=== PATIENT | female | born 1990 ===

== ENCOUNTER 2018-06-21 03:50 | Observation (INO) | payer OTHER ==
--- OUTSIDE RECORDS SUMMARY | 2018-06-21 04:20 | XMS REPORT | Continuity of Care Document ---
:1990 Author Organization Interface Problems Problem Status Onset Classification Date Comments Source Date Reported Discharge 06/29/2016 [place] Diagnosis: 7 [facility] 7 [place] Medications Medication Details Route Status Patient Ordering Order Source Instructions Provider Date Sodium 1,000 mL, Inactive Chloride 1000 017 [place] 0.154 MEQ/ML ml/hr, Injectable Infuse Solution Over: 1 hr, Route: IV, 1,000, Drug form: INJ, ONCE, Priority: STAT, Dosing Weight 65 kg, Start date: 06/26/16 10:36:00 SENIOR SALES ADMINISTRATOR, Duration: 1 doses or times, Stop date: 06/26/16 10:36:00 SENIOR SALES ADMINISTRATOR Allergies, Adverse Reactions, Alerts Substance Category Reaction Severity Reaction Status Date Comments Source type Reported Immunizations Immunization Date Given Site Status Last Updated Comments Source Results Order Name Results Value Reference Date Interpretation Comments Source Range CHEM PANEL eGFR 99 06/26 Result Comment: The eGFR is calculated using the CKD-EPI formula. In most young, healthy individuals the eGFR will be >90 mL/ min/1.73m2. The eGFR declines with age. An eGFR of 60-89 may be normal in mL/min/1 some populations, particularly the elderly, for whom the CKD-EPI formula has not been extensively validated. Use of the eGFR is not recommended in the following populations: [place] 73m2 Individuals with unstable creatinine concentrations, including patients and those with serious co-morbid conditions. Patients with extremes in muscle mass or diet. The data above are obtained from the National Kidney Disease Education Program (NKDEP) which additionally recommends that when the eGFR is used in patients with extremes of body mass index for purposes of drug dosing, the eGFR should be multiplied by the estimated BMI. CHEM PANEL Chloride Lvl 106 meq/L 95 - 109 06/26 [place] CHEM PANEL Potassium Lvl 4.1 meq/L 3.5 - 5.1 06/26 [place] CHEM PANEL Sodium Lvl 140 meq/L 135 - 145 06/26 [place] CHEM PANEL ASPARTATE 15 unit/L 0 - 37 03/ MH [place] CHEM PANEL Total Protein 7.9 g/dL 6.4 - 8.4 06/26 [place] CHEM PANEL Bili Total 0.6 mg/dL 0.2 - 1.3 06/26 [place] CHEM PANEL CO2 25 meq/L 24 - 32 / [place] CHEM PANEL Calcium Lvl 8.7 mg/dL 8.5 - 10.5 06/26 [place] CHEM PANEL Glucose Lvl 82 mg/dL 70 - 99 03/ [place] CHEM PANEL Albumin Lvl 3.6 g/dL 3.5 - 5.0 06/26 [place] CHEM PANEL Alk Phos 58 unit/L 39 - 136 06/26 [place] CHEM PANEL Creatinine 0.82 0.50 - 03/ Lvl mg/dL 1. [place] CHEM PANEL BUN 7 mg/dL 7 - 22 06/26 [place] CHEM PANEL ALANINE 23 unit/L 0 - 65 03/ AMINO [place] ASE CHEM PANEL AGAP 13.1 10.0 - 03 MH meq/L 20.0 [place] CHEM PANEL Globulin 4.3 g/dL 2.7 - 4.2 06/26 [place] CHEM PANEL A/G Ratio 0.8 0.7 - 1.6 06/26 [place] CHEM PANEL B/C Ratio 9 6 - 25 06/26 [place] HEMATOLOGY Eosinophils 0.3 % 0.0 - 4.0 06/26 [place] HEMATOLOGY Basophils 0.4 % 0.0 - 1.0 06/26 [place] HEMATOLOGY Lymphocytes 22.8 % 20.0 - 03/ MH 40.0 [place] HEMATOLOGY Monocytes 15.1 % 2.0 - 12.0 06/26 [place] HEMATOLOGY Monocytes # 1.2 K/CMM 0.0 - 0.8 06/26 [place] HEMATOLOGY Lymphocytes # 1.8 K/CMM 1.0 - 5.5 06/26 [place] HEMATOLOGY Segs-Bands # 4.9 K/CMM 1.5 - 8.1 06/26 [place] HEMATOLOGY Segs 61.4 % 45.0 - 03 MH 75.0 /2016 [place] HEMATOLOGY MPV 8.8 fL 7.4 - 10.4 06/26 [place] HEMATOLOGY Platelet 199 K/CMM 133 - 450 06/26 [place] HEMATOLOGY RDW 12.7 % 11.5 - 06/26 MH 14.5 [place] HEMATOLOGY MCHC 34.1 g/dL 32.0 - 06/26 MH 36.0 [place] HEMATOLOGY Hct 41.1 % 36.0 - 06/26 MH 48.0 [place] HEMATOLOGY Hgb 14.0 g/dL 12.0 - 06/26 MH 16.0 [place] HEMATOLOGY MCH 31.2 pg 27.0 - 06/26 MH 31.0 [place] HEMATOLOGY MCV 91.3 fL 80.0 - 06/26 MH 98.0 [place] HEMATOLOGY WBC X 10x3 8.0 K/CMM 3.7 - 10.4 06/26 [place] HEMATOLOGY RBC X 10x6 4.51 4.20 - 06/26 M/CMM 5.40 [place] URINE AND UA Color Yellow Yellow 06/26 [facility] [place] *NA* (06/26/16 10:45 AM) URINE AND UA RBC None Seen 0 - 2 06/26 [facility] [place] (06/26/16 10:45 AM) URINE AND UA Bacteria Few /HPF None Seen 06/26 [facility] /HPF [place] URINE AND UA WBC 0-2 /HPF None Seen 06/26 [facility] /HPF [place] URINE AND UA Sq Epi Rare /LPF Few /LPF 06/26 [facility] [place] URINE AND UA Nitrite Positive Negative 06/26 [facility] [place] *ABN* (06/26/16 10:45 AM) URINE AND UA 1.0 EU/dL 0.1 - 1.0 06/26 [facility] Urobilinogen /2016 [place] URINE AND UA Leuk Est Negative Negative 06/26 [facility] [place] (06/26/16 10:45 AM) URINE AND UA Ketones Negative Negative 06/26 [place] *NA* (06/26/16 10:45 AM) URINE AND UA Bili Negative Negative 06/26 [facility] [place] *NA* (06/26/16 10:45 AM) URINE AND UA Blood Negative Negative 06/26 [facility] [place] (06/26/16 10:45 AM) URINE AND UA pH 7.0 5.0 - 8.0 06/26 [facility] [place] URINE AND UA Spec Grav <=1.005 <=1.030 06/26 [facility]
*NA* /2016 [place]
(06/26 10:45 AM) URINE AND UA Turbidity Clear Clear 06/26 [facility] /2016 [place] (06/26/16 10:45 AM) URINE AND UA Glucose 100 mg/dL Negative 06/26 [facility] mg/dL [place] URINE AND UA Protein Negative Negative 06/26 [facility] [place] (06/26/16 10:45 AM) Vital Signs Vital Sign Value Date Comments Source Respitory Rate 20 06/26/2016 [facility] Systolic (mm Hg) 139 06/26/2016 [facility] Diastolic (mm Hg) 88 06/26/2016 [facility] Heart Rate 65 06/26/2016 [facility] Systolic (mm Hg) 117 06/26/2016 [facility] Diastolic (mm Hg) 74 06/26/2016 [facility] Respitory Rate 18 06/26/2016 [facility] Heart Rate 78 06/26/2016 [facility] BMI Calculated 23.85 06/26/2016 [facility] Weight 65 06/26/2016 [facility] Height 165.1 cm 06/26/2016 [facility] Temperature Oral (F) 98.3 F 06/26/2016 [facility] Encounters Location Location Encounter Encounter Reason Attending ADM DC Status Source Details Type Number For Provider Date Date [facility] [id number] [place] 06/26 06/26 Gerardo Heath /2016 [facility] Procedures Procedure Code Date Perfomer Comments Source
--- OUTSIDE RECORDS SUMMARY | 2018-06-21 04:21 | XMS REPORT | Summary of Care ---
:1990 Author Organization [facility] Address [id number] [place] [id number] Encounter HQ Rachell(FIN) [id number] Date(s): 06/26/16 - 06/26/[address] [address] [phone] Discharge Diagnosis: UTI (urinary tract infection) Discharge Disposition: Home or Self Care Attending Physician: May Heath DO Vital Signs Most recent to oldest [Reference Range]: 1 2 Height 165.1 cm (06/26/16 9:24 AM) Temperature Oral [96.4-99.1 DegF] 98.3 DegF (06/26/16 9:24 AM) Blood Pressure [90-140/60-90 mmHg] 139/88 mmHg 117/74 mmHg (06/26/16 11:28 AM) (06/26/16 9:24 AM) Respiratory Rate [14-20 BRMIN] 20 BRMIN 18 BRMIN (06/26/16 11:28 AM) (06/26/16 9:24 AM) Peripheral Pulse Rate [60-100 bpm] 65 bpm 78 bpm (06/26/16 11:28 AM) (06/26/16 9:24 AM) Weight 65 kg (06/26/16 9:24 AM) Body Mass Index 23.85 m2 (06/26/16 9:24 AM) Problem List No data available for this section Allergies, Adverse Reactions, Alerts Substance Reaction Severity Status NKDA Active Medications Sodium Chloride 0.9% (Bolus) IV 1,000 mL, 1000 ml/hr, Infuse Over: 1 hr, Route: IV, 1,000, Drug form: INJ, ONCE , Priority: STAT, Dosing Weight 65 kg, Start date: 06/26/16 10:36:00 TOOL AND DIE MANAGER, Duration: 1 doses or times, Stop date: 06/26/16 10:36:00 TOOL AND DIE MANAGER Start Date: 06/26/16 Stop Date: 06/26/16 Status: Completed Results ELECTROLYTES Most recent to oldest [Reference Range]: 1 Sodium Lvl [135-145 mEq/L] 140 mEq/L (06/26/16 10:45 AM) Potassium Lvl [3.5-5.1 mEq/L] 4.1 mEq/L (06/26/16 10:45 AM) Chloride Lvl [95-109 mEq/L] 106 mEq/L (06/26/16 10:45 AM) CO2 [24-32 mEq/L] 25 mEq/L (06/26/16 10:45 AM) AGAP [10.0-20.0 mEq/L] 13.1 mEq/L (06/26/16 10:45 AM) CHEM PANEL Most recent to oldest [Reference Range]: 1 Creatinine Lvl [0.50-1.40 mg/dL] 0.82 mg/dL (06/26/16 10:45 AM) eGFR 99 mL/min/1.73m2 1 *NA* (06/26/16 10:45 AM) BUN [7-22 mg/dL] 7 mg/dL (06/26/16 10:45 AM) B/C Ratio [6-25] 9 (06/26/16 10:45 AM) Glucose Lvl [70-99 mg/dL] 82 mg/dL (06/26/16 10:45 AM) Total Protein [6.4-8.4 g/dL] 7.9 g/dL (06/26/16 10:45 AM) Albumin Lvl [3.5-5.0 g/dL] 3.6 g/dL (06/26/16 10:45 AM) Globulin [2.7-4.2 g/dL] 4.3 g/dL *HI* (06/26/16 10:45 AM) A/G Ratio [0.7-1.6] 0.8 (06/26/16 10:45 AM) Calcium Lvl [8.5-10.5 mg/dL] 8.7 mg/dL (06/26/16 10:45 AM) ALT [0-65 unit/L] 23 unit/L (06/26/16 10:45 AM) AST [0-37 unit/L] 15 unit/L (06/26/16 10:45 AM) Alk Phos [39-136 unit/L] 58 unit/L (06/26/16 10:45 AM) Bili Total [0.2-1.3 mg/dL] 0.6 mg/dL (06/26/16 10:45 AM) 1Result Comment: The eGFR is calculated using the CKD-EPI formula. In most young , healthy individualsthe eGFR will be >90 mL/min/1.73m2. The eGFR declines with age. An eGFR of 60-89 may be normal in some populations, particularly the elderly, for whom the CKD-EPI formula has not been extensively validated. Use of the eGFR is not recommended in the following populations: Individuals with unstable creatinine concentrations, including patients and those with serious co-morbid conditions. Patients with extremes in muscle mass or diet. The data above are obtained from the National Kidney Disease Education Program ( NKDEP) which additionally recommends that when the eGFR is used in patients with extremes of body mass index for purposesof drug dosing, the eGFR should be multiplied by the estimated BMI.URINE AND STOOL Most recent to oldest [Reference Range]: 1 UA Turbidity [Clear] Clear (06/26/16 10:45 AM) UA Color [Yellow] Yellow *NA* (06/26/16 10:45 AM) UA pH [5.0-8.0] 7.0 (06/26/16 10:45 AM) UA Spec Grav [<=1.030] <=1.005 *NA* (06/26/16 10:45 AM) UA Glucose [Negative mg/dL] 100 mg/dL *ABN* (06/26/16 10:45 AM) UA Blood [Negative] Negative (06/26/16 10:45 AM) UA Ketones [Negative] Negative *NA* (06/26/16 10:45 AM) UA Protein [Negative] Negative (06/26/16 10:45 AM) UA Urobilinogen [0.1-1.0 EU/dL] 1.0 EU/dL (06/26/16 10:45 AM) UA Bili [Negative] Negative *NA* (06/26/16 10:45 AM) UA Leuk Est [Negative] Negative (06/26/16 10:45 AM) UA Nitrite [Negative] Positive *ABN* (06/26/16 10:45 AM) UA WBC [None Seen /HPF] 0-2 /HPF (06/26/16 10:45 AM) UA RBC [0-2] None Seen (06/26/16 10:45 AM) UA Bacteria [None Seen /HPF] Few /HPF (06/26/16 10:45 AM) UA Sq Epi [Few /LPF] Rare /LPF (06/26/16 10:45 AM) HEMATOLOGY Most recent to oldest [Reference Range]: 1 WBC [3.7-10.4 K/CMM] 8.0 K/CMM (06/26/16 10:45 AM) RBC [4.20-5.40 M/CMM] 4.51 M/CMM (06/26/16 10:45 AM) Hgb [12.0-16.0 g/dL] 14.0 g/dL (06/26/16 10:45 AM) Hct [36.0-48.0 %] 41.1 % (06/26/16 10:45 AM) MCV [80.0-98.0 fL] 91.3 fL (06/26/16 10:45 AM) MCH [27.0-31.0 pg] 31.2 pg *HI* (06/26/16 10:45 AM) MCHC [32.0-36.0 g/dL] 34.1 g/dL (06/26/16 10:45 AM) RDW [11.5-14.5 %] 12.7 % (06/26/16 10:45 AM) Platelet [133-450 K/CMM] 199 K/CMM (06/26/16 10:45 AM) MPV [7.4-10.4 fL] 8.8 fL (06/26/16 10:45 AM) Segs [45.0-75.0 %] 61.4 % (06/26/16 10:45 AM) Lymphocytes [20.0-40.0 %] 22.8 % (06/26/16 10:45 AM) Monocytes [2.0-12.0 %] 15.1 % *HI* (06/26/16 10:45 AM) Eosinophils [0.0-4.0 %] 0.3 % (06/26/16 10:45 AM) Basophils [0.0-1.0 %] 0.4 % (06/26/16 10:45 AM) Segs-Bands # [1.5-8.1 K/CMM] 4.9 K/CMM (06/26/16 10:45 AM) Lymphocytes # [1.0-5.5 K/CMM] 1.8 K/CMM (06/26/16 10:45 AM) Monocytes # [0.0-0.8 K/CMM] 1.2 K/CMM *HI* (06/26/16 10:45 AM) Immunizations No data available for this section Procedures No data available for this section Social History Social History Type Response Smoking Status Never smoker; Exposure to Tobacco Smoke None; Cigarette Smoking Last 365 Days No; Reg Smoking Cessation Counseling No Assessment and Plan No data available for this section
[2018-06-21] MEDS ORDERED: KETOROLAC 30 MG/ML INJ IV PRN (04:42)
[2018-06-21] MEDS ORDERED: ONDANSETRON 4 MG/2 ML VIAL IV PRN (04:42)
[2018-06-21] MEDS ORDERED: NA CHLORIDE 0.9% 1,000 ML IV SCH (05:00)
--- NOTE | 2018-06-21 05:09 | P.HP ---
Certification for Inpatient Patient admitted to: Inpatient With expected LOS: >2 Midnights Practitioner: I am a practitioner with admitting privileges, knowledge of patient current condition, hospital course, and medical plan of care. Services: Services provided to patient in accordance with Admission requirements found in Title 42 Section 412.3 of the Code of Federal Regulations Patient History Date of Service: 06/21/18 Reason for admission: acute cholecystitis History of Present Illness: Ms Turpin is a 28 years old woman with pretty benign past medical history , who start last night around 10:00 PM with right upper quadrant pain, intensity 8/10, without radiation. She denied nausea or vomiting, no fever or chills. She has had this kind of pain 3 times in the past, the first time was about 4 years ago, all of them resolved by them self, she has never have seen a doctor until today for this problem. The patient went to [facility], Lab work there was mostly unremarkable except for mild abnormal liver enzymes level. CT abd/pelvis revealed gallbladder wall distention consistent with cholecystitis. No stones reported, normal diameter of CBD. She was transfer then to our facility for surgery evaluation. Allergies No Known Allergies Allergy (Verified 06/21/18 04:43) Home Medications: [id number]/Iron Fumarate/FA/Dss [ 19 Tablet] 1 tab PO DAILY 06/21/18 - Past Medical/Surgical History Has patient received pneumonia vaccine in the past: No -: UtI -: [place] tooth removal - Family History Father -: Blood disorders Notes: blood clotting problem Mother -: Blood disorders Notes: blood clotting problem - Social History Smoking Status: Never smoker Alcohol use: No CD- Drugs: No Caffeine use: Yes Place of Residence: Home Review of Systems 10-point ROS is otherwise unremarkable Physical Examination - Vital Signs Temperature: 98.9 F Blood Pressure: 112/73 Pulse: 57 Respirations: 18 Pulse Ox (%): 99 - Physical Exam General: Alert, In no apparent distress HEENT: Atraumatic, PERRLA, Mucous membr. moist/pink, EOMI, Sclerae nonicteric Neck: Supple, 2+ carotid pulse no bruit, No LAD, Without JVD or thyroid abnormality Respiratory: Clear to auscultation bilaterally, Normal air movement Cardiovascular: Regular rate/rhythm, Normal S1 S2 Gastrointestinal: Normal bowel sounds, Tenderness (tender to palpation on RUQ.) Musculoskeletal: No tenderness Integumentary: No rashes Neurological: Normal speech, Normal strength at 5/5 x4 extr, Normal tone, Normal affect Lymphatics: No axilla or inguinal lymphadenopathy Assessment and Plan - Problems (Diagnosis) (1) Acute cholecystitis Current Visit: Yes Status: Acute - Plan Will keep the patient NPO, start IV fluids, pain medication, empiric treatment with Cipro and Flagyl. Awaiting Dr Montilla evaluation and recommendations. - Advance Directives Does patient have a Living Will: No Does patient have a Durable POA for Healthcare: No - Code Status/Comfort Care Code Status Assessed: Yes Code Status: Full Code
[2018-06-21 05:57] LABS: Urine Appearance CLEAR; Urine Bilirubin NEGATIVE (NEG); Urine Blood NEGATIVE (NEG); Urine Color YELLOW; Urine Glucose NEGATIVE (NEG); Urine Protein NEGATIVE (NEG); Urine Specific Gravity 1.015 (1.005-1.030); Urine Urobilinogen 0.2 mg/dL (0.2-1.0); Urine pH 6.5 (5.0-7.0)
[2018-06-21 05:58] LABS: Urine Microscopic Reflex NO UMIC
[2018-06-21 06:35] LABS: Absolute Lymphocytes (CBC) 1.6 K/uL (0.7-4.9); Absolute Monocytes 0.3 K/uL (0.1-1.3); Absolute Neutrophil 4.2 K/uL (1.8-8.0); Albumin 3.6 g/dL (3.4-5.0); Basophils % 0.7 % (0-1.3); Bilirubin Total 0.4 mg/dL (0.2-1.0); Eosinophils % 0.9 % (0-4.4); Hematocrit 41.8 % (36.0-45.0); Lymphocytes % 25.4 % (15.3-44.8); MPV 9.4 fL (7.6-11.3); Monocytes % 5.3 % (3.3-12.3); Potassium 3.8 mmol/L (3.5-5.1); Protein, Total 6.9 g/dL (6.4-8.2); RBC Red Blood Cell Count 4.46 M/uL (3.86-4.86)
[2018-06-21 07:27] LABS: Protime INR 0.96
[2018-06-21] MEDS ORDERED: KCL 20 MEQ/100 mL IVPB 20 MEQ/100 ML BAG IV SCH (08:00)
[2018-06-21] MEDS ORDERED: CIPROFLOXACIN 400mg IV 400 MG/200 ML BAG IV SCH (09:00)
[2018-06-21] MEDS ORDERED: METRONIDAZOLE 500mg IVPB 500 MG/100 ML BAG IV SCH (09:00)
--- NOTE | 2018-06-21 10:38 | RAD REPORT ---
EXAM DESCRIPTION: US - Abdomen Exam Limited - 06/21/2018 9:57 am CLINICAL HISTORY: Abdominal pain. COMPARISON: None. FINDINGS: The gallbladder wall measures about 3 millimeters. A gallstone is not seen. Gallbladder is borderline distended. The biliary tree is normal caliber. IMPRESSION: Borderline gallbladder distention with borderline gallbladder wall thickening. A gallstone is not seen
--- NOTE | 2018-06-21 11:01 | CON ---
Date of Consultation: 06/21/2018 Reason For Consultation: Possible cholecystitis. History Of Present Illness: The patient is a 28-year-old female, who came in with acute onset of rig ht upper quadrant pain going slightly to the right side towards the back but not in the back itself a nd denies any nausea or vomiting. She did have some bloating but no belching or heartburn. No diarr hea or constipation. No blood in her stool. No dysuria or hematuria. No sore throat, runny nose, c ough, headaches, or dizziness. No chest pain. No fever or chills. At this moment, she is completely asymptomatic. Review of Systems: Otherwise unremarkable. Past Medical History: Negative. Past Surgical History: [place] tooth removal. Allergies: NONE. Social History: Patient does not smoke. Drinks occasionally. Family History: Significant for some sort of clotting problems in the father and the mother. Physical Examination: Vital Signs: Stable. She is afebrile. She is awake, alert, and oriented x3. Head and Neck: No evidence of icterus. Cranial nerves 2 through 12 are grossly within normal limits. No neck masses. No JVD. Throat clear. Neck: Supple. Chest: Clear. Heart: S1, S2. Abdomen: Soft, nondistended, nontender. Positive bowel sounds. Extremities: Neurovascularly intact. Neuro: Nonfocal. Diagnostic/laboratory Data: White count is normal. There is no left shift. INR is normal. Peanut Butter Maker ry shows the LFTs to be within normal limits. Electrolytes are within normal limits. CT of the abdo men and pelvis showed a distended gallbladder suspicious for acute cholecystitis. Ultrasound done he re does not show any evidence of gallbladder wall thickening. No stones. No pericholecystic fluid. Common bile duct is normal, however, the gallbladder is borderline distended. Assessment: Abdominal pain. Etiology unclear. Likely acalculous cholecystitis or biliary dyskinesi a. Recommendation: Patient is asymptomatic. Patient can follow up with me as an outpatient for a SAUNDRAA s can, following which we will make further determination. If it is positive, then she will need her ga llbladder taken out. If not, then she will need a GI workup, and she is asymptomatic currently she c an be discharged home. Follow with me in the office. MAIDA Voice ID: [id number] Report ID: [id number]
--- NOTE | 2018-06-22 04:35 | DS ---
Date of Discharge: 06/21/2018 Consultants: Dr. Montilla with General Surgery. Discharge Diagnosis: Acute cholecystitis. Hospital Course: The patient is a 28-year-old female with no past medical history, comes in with abd ominal pain in the right upper quadrant. The patient was worked up in [place] ER. CT abdomen and pelv is revealed gallbladder wall distention consistent with cholecystitis. She was transferred to [facility]. The patient was started on antibiotics and pain medications. She was kept n.p.o. Surgical evaluation was obtained. Dr. Montilla had ordered an ultrasound which showed borderline gallbl adder distention with borderline gallbladder wall thickening, gallstones not seen. Biliary tree was normal in caliber. The patient was pain free. Did not have any elevated liver enzymes or hyperbilir ubinemia. White count was normal. She did not appear septic. The patient was then cleared for disc harge from Dr. Montilla's standpoint. He recommended outpatient HIDA scan to rule out biliary dyskinesi a. The patient was then cleared for discharge and was sent home in a stable condition. Activity: As tolerated. Medications: As per medication reconciliation list. Diet: No fried or fatty foods. Followup: Follow up with primary care physician in 2-3 days. Follow up with surgeon, Dr. Montilla, in 2 weeks. Return to ER for worsening condition. Medications: As per medication reconciliation list. Physical Examination: General: Awake, alert, and oriented, no acute distress. CV: S1, S2. No murmurs. Respiratory: Moving air well bilaterally. Abdomen: Soft, nontender, and nondistended. Positive bowel sounds. No guarding or rigidity. Extremities: No clubbing, cyanosis, or edema. Neurologic: Nonfocal. SA/MODL Voice ID: [id number] Report ID: [id number]
== END 2018-06-21 15:45 | disposition home or self-care (01) ==
LOC: ERHOLD 03:50 → UNDOADMIN 03:50 → INTOOBSV 04:18 → 2ND 04:18
PROVIDERS: ADMIT Internal Medicine; ATTEND Internal Medicine
DX: K81.0 Acute cholecystitis (principal)
CPT/HCPCS: 36415; 76705; 80053; 81003; 83605; 83735; 85025; 85610; 85730; G0378; J0744; J7030